=== PATIENT | female | born 2000 | race Caucasian/White ===

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

== ENCOUNTER 2020-04-03 14:06 | Emergency (ER) | payer OTHER ==
[~2020-04-03 14:06] MED LIST: ALBUTEROL2.5 MG/3 M INH; AUGMENTIN 875-1 EACH PO; CEFUROXIME500 MG PO; MACROBID 100 M100 MG PO; MOTRIN SUS100 MG/5 M PO; PREDNISONE20 MG PO; TESSALON PERLE100 MG PO; VENTOLIN HFA 66.7 GM INH; ZITHROMAX250 MG PO; ZOFRAN4 MG PO; ZYRTEC10 M3 PO
[2020-04-03] MEDS ORDERED: NAPROSYN500 MG PO (16:41)
== END 2020-04-03 17:13 | disposition home or self-care (01) ==
LOC: ER1 14:06
DX: S92.512A Displaced fracture of proximal phalanx of left lesser toe(s), initial encounter for closed fracture (principal); S93.402A Sprain of unspecified ligament of left ankle, initial encounter; F41.9 Anxiety disorder, unspecified; G43.909 Migraine, unspecified, not intractable, without status migrainosus; Z79.899 Other long term (current) drug therapy; Z88.0 Allergy status to penicillin; X58.XXXA Exposure to other specified factors, initial encounter; Y92.009 Unspecified place in unspecified non-institutional (private) residence as the place of occurrence of the external cause
CPT/HCPCS: 73610; 73630; 99283

== ENCOUNTER → 2020-04-12 | Outpatient (CLI) | payer OTHER ==
[~2020-04-12] MED LIST changes: +BENTYL 20MG TAB20 MG PO; +CIPRO500 MG PO; +NAPROSYN500 MG PO; +NAPROXEN500 MG PO; +ONDANSETRON ODT4 MG SL; +PHENERGAN 25 MG25 M1 PO; +PYRIDIUM200 MG PO
== END ==
LOC: KOH-I 08:49
DX: S93.325A Dislocation of tarsometatarsal joint of left foot, initial encounter (principal); X58.XXXA Exposure to other specified factors, initial encounter
CPT/HCPCS: 73700

== ENCOUNTER 2020-04-24 16:27 | Emergency (ER) | payer OTHER ==
[~2020-04-24 16:27] MED LIST changes: -BENTYL 20MG TAB20 MG PO; -CIPRO500 MG PO; -NAPROXEN500 MG PO; -ONDANSETRON ODT4 MG SL; -PHENERGAN 25 MG25 M1 PO; -PYRIDIUM200 MG PO
== END 2020-04-24 18:25 | disposition left against medical advice (07) ==
LOC: ER1 16:27
DX: F41.9 Anxiety disorder, unspecified (principal); Z53.21 Procedure and treatment not carried out due to patient leaving prior to being seen by health care provider
CPT/HCPCS: J2405

== ENCOUNTER → 2020-05-16 | Outpatient (CLI) | payer OTHER ==
[~2020-05-16] MED LIST changes: +BENTYL 20MG TAB20 MG PO; +CIPRO500 MG PO; +NAPROXEN500 MG PO; +ONDANSETRON ODT4 MG SL; +PHENERGAN 25 MG25 M1 PO; +PYRIDIUM200 MG PO
== END ==
LOC: KOH-I 10:33
DX: S93.322A Subluxation of tarsometatarsal joint of left foot, initial encounter (principal); X58.XXXA Exposure to other specified factors, initial encounter
CPT/HCPCS: 73630

== ENCOUNTER → 2020-06-01 | Outpatient (CLI) | payer OTHER | LOC: KOH-I 08:11 | DX: M79.672 Pain in left foot (principal) | CPT/HCPCS: 73718 ==

== ENCOUNTER 2020-06-10 13:32 | Emergency (ER) | payer OTHER ==
[~2020-06-10 13:32] MED LIST changes: -BENTYL 20MG TAB20 MG PO; -CIPRO500 MG PO; -NAPROXEN500 MG PO; -ONDANSETRON ODT4 MG SL; -PHENERGAN 25 MG25 M1 PO; -PYRIDIUM200 MG PO
[2020-06-10 15:44] LABS: HEMOGLOBIN 15.2 gm/dl (12.3-15.3); RED BLOOD COUNT 5.43 M/UL (4.00-5.10); WHITE BLOOD COUNT 13.6 K/UL (4.5-11.0)
[2020-06-10 16:14] LABS: BUN/CREATININE RATIO 12 (0-10)
[2020-06-10] MEDS ORDERED: NAPROSYN500 MG PO (16:57)
[2020-06-10] MEDS ORDERED: CIPRO500 MG PO (16:57)
[2020-06-10] MEDS ORDERED: PYRIDIUM200 MG PO (16:57)
[2020-06-10] MEDS ORDERED: ONDANSETRON ODT4 MG SL (16:57)
== END 2020-06-10 17:33 | disposition home or self-care (01) ==
LOC: ER1 13:32
PROVIDERS: Physician Assistant
DX: N39.0 Urinary tract infection, site not specified (principal); J45.909 Unspecified asthma, uncomplicated; Z88.0 Allergy status to penicillin
CPT/HCPCS: 80053; 81001; 83690; 84703; 85025; 87086; 96374; 96375; 99284; J1885; J2405; J7030

== ENCOUNTER 2020-07-26 18:44 | Emergency (ER) | payer OTHER ==
[~2020-07-26 18:44] MED LIST changes: +CIPRO500 MG PO; +ONDANSETRON ODT4 MG SL; +PYRIDIUM200 MG PO
[2020-07-26 21:11] LABS: RED BLOOD COUNT 5.77 M/UL (4.00-5.10)
[2020-07-26 21:36] LABS: BUN/CREATININE RATIO 12 (0-10)
== END 2020-07-26 22:55 | disposition home or self-care (01) ==
LOC: ER1 18:44
PROVIDERS: Emergency Medicine
DX: K82.9 Disease of gallbladder, unspecified (principal); E66.9 Obesity, unspecified; J45.909 Unspecified asthma, uncomplicated; Z90.89 Acquired absence of other organs
CPT/HCPCS: 80053; 81001; 83690; 84703; 85025; 96374; 96375; 99284; J1885; J2270; J2405; J7030

== ENCOUNTER 2020-07-28 12:00 | Emergency (ER) | payer OTHER ==
[2020-07-28 12:42] LABS: HEMOGLOBIN 15.2 gm/dl (12.3-15.3); RED BLOOD COUNT 5.4 M/UL (4.00-5.10); WHITE BLOOD COUNT 9.9 K/UL (4.5-11.0)
[2020-07-28 13:01] LABS: BUN/CREATININE RATIO 12 (0-10)
[2020-07-28] MEDS ORDERED: ZOFRAN4 MG PO (14:34)
[2020-07-28] MEDS ORDERED: BENTYL 20MG TAB20 MG PO (14:34)
[2020-07-28] MEDS ORDERED: NAPROXEN500 MG PO (14:34)
== END 2020-07-28 15:23 | disposition home or self-care (01) ==
LOC: ER1 12:00
PROVIDERS: Physician Assistant Medical
DX: R10.11 Right upper quadrant pain (principal); R11.2 Nausea with vomiting, unspecified; R19.7 Diarrhea, unspecified; J45.909 Unspecified asthma, uncomplicated; Z90.89 Acquired absence of other organs; Z88.0 Allergy status to penicillin
CPT/HCPCS: 76705; 80053; 81001; 83690; 85025; 85652; 86140; 96374; 96375; 99284; J2270; J2405; J7030

== ENCOUNTER → 2020-09-08 | Outpatient (CLI) | payer OTHER ==
[~2020-09-08] MED LIST changes: +BENTYL 20MG TAB20 MG PO; +NAPROXEN500 MG PO; +PHENERGAN 25 MG25 M1 PO
== END ==
LOC: NM 08:07
DX: R10.11 Right upper quadrant pain (principal)
CPT/HCPCS: 78226; A9537

== ENCOUNTER 2020-09-25 11:51 | Emergency (ER) | payer OTHER ==
[~2020-09-25 11:51] MED LIST changes: -PHENERGAN 25 MG25 M1 PO
[2020-09-25 14:37] LABS: HEMOGLOBIN 15.9 gm/dl (12.3-15.3); RED BLOOD COUNT 5.57 M/UL (4.00-5.10); WHITE BLOOD COUNT 13.5 K/UL (4.5-11.0)
[2020-09-25 14:49] LABS: BUN/CREATININE RATIO 9 (0-10)
[2020-09-25] MEDS ORDERED: BENTYL 20MG TAB20 MG PO (16:43)
[2020-09-25] MEDS ORDERED: ZOFRAN4 MG PO (16:43)
[2020-09-25] MEDS ORDERED: PHENERGAN 25 MG25 M1 PO (16:50)
[2020-09-26 05:08] LABS: HBSAG SCREEN Negative (Negative); HEP A AB, IGM Negative (Negative); HEP B CORE AB, IGM Negative (Negative); HEP C VIRUS AB <0.1 (0.0-0.9)
== END 2020-09-25 17:04 | disposition home or self-care (01) ==
LOC: ER1 11:51
PROVIDERS: Physician Assistant Medical
DX: R10.11 Right upper quadrant pain (principal); R11.2 Nausea with vomiting, unspecified; R19.7 Diarrhea, unspecified; J45.909 Unspecified asthma, uncomplicated; Z88.0 Allergy status to penicillin; Z90.89 Acquired absence of other organs
CPT/HCPCS: 80053; 80074; 83690; 84703; 85025; 96374; 96375; 99284; J1885; J2270; J2405

== ENCOUNTER 2020-09-26 16:01 | Emergency (ER) | payer OTHER ==
[~2020-09-26 16:01] MED LIST changes: +PHENERGAN 25 MG25 M1 PO
[2020-09-26 17:40] LABS: HEMOGLOBIN 15.4 gm/dl (12.3-15.3); RED BLOOD COUNT 5.43 M/UL (4.00-5.10); WHITE BLOOD COUNT 11.4 K/UL (4.5-11.0)
[2020-09-26 18:00] LABS: BUN/CREATININE RATIO 8 (0-10)
== END 2020-09-26 22:45 | disposition home or self-care (01) ==
LOC: ER1 16:01
PROVIDERS: Physician Assistant
DX: R10.11 Right upper quadrant pain (principal); R10.13 Epigastric pain; R11.2 Nausea with vomiting, unspecified; Z88.0 Allergy status to penicillin
CPT/HCPCS: 80053; 83690; 85025; 99284

== ENCOUNTER 2020-12-31 16:28 | Emergency (ER) | payer OTHER ==
[2020-12-31 18:43] LABS: HEMOGLOBIN 16.4 gm/dl (12.3-15.3); RED BLOOD COUNT 5.76 M/UL (4.00-5.10); WHITE BLOOD COUNT 9.5 K/UL (4.5-11.0)
[2020-12-31 19:06] LABS: BUN/CREATININE RATIO 9 (0-10)
[2020-12-31] MEDS ORDERED: PREDNISONE20 MG PO (19:33)
[2020-12-31] MEDS ORDERED: ZOFRAN4 MG PO (19:33)
== END 2020-12-31 20:19 | disposition home or self-care (01) ==
LOC: ER1 16:28
PROVIDERS: Nurse Practitioner
DX: A08.4 Viral intestinal infection, unspecified (principal); J45.901 Unspecified asthma with (acute) exacerbation; Z88.0 Allergy status to penicillin; Z79.899 Other long term (current) drug therapy; Z20.822 Contact with and (suspected) exposure to COVID-19
CPT/HCPCS: 71045; 80053; 81001; 83690; 84703; 85025; 87081; 87086; 87880; 96374; 99284; J2405; U0002

== ENCOUNTER 2021-01-20 20:49 | Inpatient (IN) | payer OTHER ==
[~2021-01-20] VITALS: Ht 157.5 cm; Wt 131.5 kg
[2021-01-20 22:40] LABS: HEMOGLOBIN 15.4 gm/dl (12.3-15.3); RED BLOOD COUNT 5.37 M/UL (4.00-5.10)
[2021-01-20 23:14] LABS: BUN/CREATININE RATIO 16 (0-10)
[2021-01-21] MEDS ORDERED: SEROQUEL25 MG PO (00:13)
[2021-01-21 03:18] LABS: HEMOGLOBIN 13.9 gm/dl (12.3-15.3); RED BLOOD COUNT 5.11 M/UL (4.00-5.10); WHITE BLOOD COUNT 9.5 K/UL (4.5-11.0)
[2021-01-21 03:46] LABS: BUN/CREATININE RATIO 16 (0-10)
[2021-01-22 10:45] LABS: HEMOGLOBIN 14.2 gm/dl (12.3-15.3); RED BLOOD COUNT 5.01 M/UL (4.00-5.10)
[2021-01-22 10:47] LABS: WHITE BLOOD COUNT 18.1 K/UL (4.5-11.0)
[2021-01-22 11:26] LABS: BUN/CREATININE RATIO 19 (0-10)
[2021-01-23 09:12] LABS: HEMOGLOBIN 14.5 gm/dl (12.3-15.3); RED BLOOD COUNT 5.09 M/UL (4.00-5.10); WHITE BLOOD COUNT 17.3 K/UL (4.5-11.0)
[2021-01-23] MEDS ORDERED: LEVALBUTER1.25 MG/3 NEB ×2 (12:42→12:53)
[2021-01-23] MEDS ORDERED: BANOPHEN25 MG PO ×2 (12:42→13:12)
[2021-01-23] MEDS ORDERED: EPIPEN 2-P0.3 MG/0.3 INJ (12:44)
[2021-01-23] MEDS ORDERED: PROAIR HFA8.5 GM INH ×2 (12:44→13:12)
[2021-01-23] MEDS ORDERED: MEDROL DOSEPAK 24 MG PO (12:55)
[2021-01-23] MEDS ORDERED: FAMOTIDINE20 MG PO (12:55)
[2021-01-23] MEDS ORDERED: BUDESONIDE0.5 MG/2 M NEB (13:12)
[2021-01-31 08:14] LABS: AMPHETAMINES, URINE Negative ng/mL (Cutoff=1000); BARBITURATE Negative ng/mL (Cutoff=200); BENZODIAZEPINES Negative ng/mL (Cutoff=200); CANNABINOID Negative (Cutoff=20); CANNABINOIDS See Final Results ng/mL (Cutoff=20); COCAINE (METABOLITE) Negative ng/mL (Cutoff=300); MEPERIDINE Negative ng/mL (Cutoff=200); METHADONE Negative ng/mL (Cutoff=300); OPIATES Negative ng/mL (Cutoff=300); OPIATES See Final Results ng/mL (Cutoff=300); PHENCYCLIDINE Negative ng/mL (Cutoff=25); PROPOXYPHENE Negative ng/mL (Cutoff=300)
== END 2021-01-23 14:09 | disposition home or self-care (01) | DRG 916 ==
LOC: ER1 20:49 → PROG CARE 22:39 → CDU 22:39 → MED SURG 4 22:39 → PROG CARE 23:47 → MED SURG 4 01-22 14:16
PROVIDERS: Emergency Medicine; Internal Medicine; ADMIT Internal Medicine
DX: T78.09XA Anaphylactic reaction due to other food products, initial encounter (principal); J98.11 Atelectasis; J45.21 Mild intermittent asthma with (acute) exacerbation; Z68.43 Body mass index [BMI] 50.0-59.9, adult; Z20.822 Contact with and (suspected) exposure to COVID-19; R73.9 Hyperglycemia, unspecified; R13.10 Dysphagia, unspecified; G47.33 Obstructive sleep apnea (adult) (pediatric); T38.0X5A Adverse effect of glucocorticoids and synthetic analogues, initial encounter; E66.01 Morbid (severe) obesity due to excess calories; Z83.3 Family history of diabetes mellitus; Z90.49 Acquired absence of other specified parts of digestive tract; Z91.018 Allergy to other foods; Z23 Encounter for immunization
CPT/HCPCS: 36415; 36430; 71045; 71250; 80053; 80307; 82550; 82553; 82962; 83735; 83874; 84100; 84439; 84443; 84484; 84703; 85025; 85379; 90686; 94640; 94664; 94760; 99285; G0008; J1650; J2920; U0002

== ENCOUNTER → 2021-02-13 | Outpatient (CLI) | payer OTHER ==
[~2021-02-13] MED LIST changes: +BANOPHEN25 MG PO; +BUDESONIDE0.5 MG/2 M NEB; +EPIPEN 2-P0.3 MG/0.3 INJ; +FAMOTIDINE20 MG PO; +LEVALBUTER1.25 MG/3 NEB; +MEDROL DOSEPAK 24 MG PO; +PROAIR HFA8.5 GM INH; +SEROQUEL25 MG PO
== END ==
LOC: HEART 5 11:50
DX: J45.909 Unspecified asthma, uncomplicated (principal); Z91.038 Other insect allergy status
CPT/HCPCS: 94060; 94729; 95012

== ENCOUNTER 2021-06-26 19:38 | Emergency (ER) | payer OTHER ==
[2021-06-26 20:29] LABS: HEMOGLOBIN 15.2 gm/dl (12.3-15.3); RED BLOOD COUNT 5.45 M/UL (4.00-5.10); WHITE BLOOD COUNT 11.5 K/UL (4.5-11.0)
[2021-06-26 20:53] LABS: BUN/CREATININE RATIO 12 (0-10)
[2021-06-27] MEDS ORDERED: ZOFRAN ODT 4 MG4 MG GT (00:52)
== END 2021-06-27 00:55 | disposition home or self-care (01) ==
LOC: ER1 19:38
PROVIDERS: Family Medicine
DX: S60.812A Abrasion of left wrist, initial encounter (principal); R11.2 Nausea with vomiting, unspecified; R51.9 Headache, unspecified; F17.210 Nicotine dependence, cigarettes, uncomplicated; F10.10 Alcohol abuse, uncomplicated; F17.200 Nicotine dependence, unspecified, uncomplicated; Z20.822 Contact with and (suspected) exposure to COVID-19; W45.8XXA Other foreign body or object entering through skin, initial encounter
CPT/HCPCS: 80053; 80307; 81001; 83605; 83690; 84703; 85025; 96374; 96375; 99284; G0480; J2060; J2405; J7030; U0002

== ENCOUNTER 2021-07-04 15:30 | Inpatient (IN) | payer OTHER ==
[~2021-07-04] VITALS: Ht 157.5 cm; Wt 122.5 kg
[~2021-07-04 15:30] MED LIST changes: +ZOFRAN ODT 4 MG4 MG GT
[2021-07-04 16:13] LABS: HEMOGLOBIN 15.6 gm/dl (12.3-15.3); RED BLOOD COUNT 5.53 M/UL (4.00-5.10); WHITE BLOOD COUNT 13.3 K/UL (4.5-11.0)
[2021-07-04 16:41] LABS: BUN/CREATININE RATIO 8 (0-10)
[2021-07-04] MEDS ORDERED: LORATADINE10 MG PO (23:02)
[2021-07-05] MEDS ORDERED: MILI 0.25-0.031 EACH PO (09:16)
[2021-07-05] MEDS ORDERED: ALBUTEROL2.5 MG/3 M NEB (09:17)
[2021-07-05] MEDS ORDERED: PROVENTIL HFA6.7 GM INH (09:19)
[2021-07-05] MEDS ORDERED: BREO ELLIPTA 11 EACH INH (09:35)
[2021-07-05 10:58] LABS: HEMOGLOBIN 14.6 gm/dl (12.3-15.3); RED BLOOD COUNT 5.27 M/UL (4.00-5.10); WHITE BLOOD COUNT 12.3 K/UL (4.5-11.0)
[2021-07-05 11:18] LABS: BUN/CREATININE RATIO 16 (0-10)
--- NOTE | 2021-07-05 12:31 | NUR ---
DARIUS ASKED US TO CALL SECURITY AND HAVE HER GRANDMOTHER REMOVED. WE CALLED SECURITY AND UPON ARRIVING WE INTERVEIWED BOTH PATIENT AND GRANDMOTHER SEPERATELY TO FIND OUT WHAT HAPPEND. BOTH COOPERATED AND GRANDMOTHER LEFT PEACEFULLY. NATIVIDAD (EXECUTIVE KITCHEN MANAGER) AND YASSINE (TUBE TEST TECHNICIAN) ALSO GOT INVOLVED IN THE INTERVEIWS. THE GRANDMOTHERS SIDE OF THE STORY WAS THAT SHE DID NOT HIT THE PATIENT AND THE PATIENT WAS JUST MAD BECAUSE THE GRANDMOTHER HAD DISCOVERD A RAZOR IN VIVIENNE'S PURSE AND VIVIENNE HAS A HISTORY OF CUTTING HERSELF. THE RAZOR WAS CONFISCATED BY [employer]. THE PATIENT WILLINGLY GAVE IT UP. THE PATIENTS SIDE OF THE STORY WAS THAT SHE FOUND HER GRANDMOTHER GOING THROUGH HER PURSE WHEN SHE GOT BACK FROM [place] AND THE GRANDMOTHER ACCUSED VIVIENNE OF STEALING HER NARCOTICS AND AFTER VIVIENNE DENIED THIS THE GRANDMOTHER BEGAN HITTING HER IN HER CHEST. VIVIENNE SAID SHE DOES HAVE A HISTORY OF CUTTING HERSELF BUT HAS NOT RECENTLY AND HAS NO PLANS TO AND SAYS SHE IS NOT SUICIDAL AND HAS NO PLANS OF HURTING HERSELF. THE PATIENT SAID HER GRANDMOTHER DOES THIS OCCASINALLY WHERE SHE GETS OUT OF HER HEAD AND ONCE SHE GOES HOME TO REST SHE CAN BE ALLOWED BACK.
--- NOTE | 2021-07-05 17:40 | NUR ---
FLATLOCK SEWING MACHINE OPERATOR FRANNY CAME OUT OF VIVIENNE'S ROOM AND STATED THAT VIVIENNE HAD STATED SHE WAS HAVING SUCIDAL THOUGHTS "ON AND OFF". UPON ENTERING THE PATIENTS ROOM THE PATIENT TOLD ME SHE WAS TRYING TO SAY THAT SHE HAD SUICIDAL THOGUHTS IN THE PAST BUT IS NOT NOW. DR. WALSH WAS NOTIFIED AND SO WAS NATIVIDAD DELGADO FARMWORKER AND YASSINE PROPERTY LOSS INSURANCE CLAIM ADJUSTER. PATIENT IS NOW PLACED IN SUICIDE PERCAUTIONS AND AWAITING OLAP EVAL. PATIENT REFUSED PAPER GOWN AFTER MULTIPLE ATTEMPTS TO GET HER TO WEAR IT.
[2021-07-06 07:40] LABS: HEMOGLOBIN 14.1 gm/dl (12.3-15.3); RED BLOOD COUNT 5.12 M/UL (4.00-5.10)
[2021-07-06 07:41] LABS: WHITE BLOOD COUNT 20.6 K/UL (4.5-11.0)
[2021-07-06 07:55] LABS: BUN/CREATININE RATIO 21 (0-10)
[2021-07-07 03:48] LABS: HEMOGLOBIN 14.2 gm/dl (12.3-15.3); RED BLOOD COUNT 5.09 M/UL (4.00-5.10); WHITE BLOOD COUNT 16.1 K/UL (4.5-11.0)
[2021-07-07 04:02] LABS: BUN/CREATININE RATIO 22 (0-10)
[2021-07-08 11:10] LABS: HEMOGLOBIN 15.1 gm/dl (12.3-15.3); RED BLOOD COUNT 5.4 M/UL (4.00-5.10); WHITE BLOOD COUNT 19.5 K/UL (4.5-11.0)
[2021-07-08 11:42] LABS: BUN/CREATININE RATIO 27 (0-10)
[2021-07-09 06:56] LABS: HEMOGLOBIN 14.7 gm/dl (12.3-15.3); RED BLOOD COUNT 5.29 M/UL (4.00-5.10); WHITE BLOOD COUNT 17.8 K/UL (4.5-11.0)
[2021-07-09 07:27] LABS: BUN/CREATININE RATIO 22 (0-10)
[2021-07-10] MEDS ORDERED: LEVALBUTER0.63 MG/3 NEB (07:52)
[2021-07-10] MEDS ORDERED: PROTONIX 40 MG40 M1 PO (07:52)
[2021-07-10] MEDS ORDERED: NICOTINE PATCH1 EAC1 TD (07:52)
[2021-07-10] MEDS ORDERED: ACETAMINOPHEN325 MG PO (07:52)
--- NOTE | 2021-07-11 17:20 | NUR ---
pt discharged to [facility] , he states he will take her to [facility] to be evaluated by [facility]. pt stable she denies stress and sadness at this time and denies a plan to self harm.
[2021-07-13 03:08] LABS: D001-IGE D PTERONYSSINUS <0.10 kU/L (Class 0); D002-IGE D FARINAE <0.10 kU/L (Class 0); E005-IGE DOG DANDER 0.61 kU/L (Class II); G006-IGE TIMOTHY GRASS 0.16 kU/L (Class 0/I); M001-IGE PENICILLIUM CHRYSOGEN <0.10 kU/L (Class 0); M002-IGE CLADOSPORIUM HERBARUM <0.10 kU/L (Class 0); M003-IGE ASPERGILLUS FUMIGATUS <0.10 kU/L (Class 0); M006-IGE ALTERNARIA ALTERNATA <0.10 kU/L (Class 0); T001-IGE MAPLE/BOX ELDER 0.16 kU/L (Class 0/I); T003-IGE COMMON SILVER BIRCH <0.10 kU/L (Class 0); T007-IGE OAK, WHITE 0.16 kU/L (Class 0/I); T010-IGE WALNUT 0.17 kU/L (Class 0/I); T011-IGE MAPLE LEAF SYCAMORE 0.12 kU/L (Class 0/I); T014-IGE COTTONWOOD 0.11 kU/L (Class 0/I); T015-IGE ASH, WHITE 0.21 kU/L (Class 0/I); T070-IGE WHITE MULBERRY <0.10 kU/L (Class 0); W001-IGE RAGWEED, SHORT <0.10 kU/L (Class 0); W018-IGE SHEEP SORREL 0.15 kU/L (Class 0/I)
== END 2021-07-11 17:00 | disposition home or self-care (01) | DRG 189 ==
LOC: ER1 15:30 → CDU 17:51 → MED SURG 4 20:35
PROVIDERS: Internal Medicine; Nurse Practitioner Family; Physician Assistant Medical; Preventive Medicine Occupational Medicine; ADMIT Internal Medicine
DX: J96.01 Acute respiratory failure with hypoxia (principal); G93.5 Compression of brain; J98.11 Atelectasis; J45.41 Moderate persistent asthma with (acute) exacerbation; Z20.822 Contact with and (suspected) exposure to COVID-19; J82.83 Eosinophilic asthma; Z68.42 Body mass index [BMI] 45.0-49.9, adult; E66.01 Morbid (severe) obesity due to excess calories; F32.A Depression, unspecified; F41.9 Anxiety disorder, unspecified; F10.10 Alcohol abuse, uncomplicated; F19.10 Other psychoactive substance abuse, uncomplicated; F17.210 Nicotine dependence, cigarettes, uncomplicated; F17.220 Nicotine dependence, chewing tobacco, uncomplicated; K76.0 Fatty (change of) liver, not elsewhere classified; J20.9 Acute bronchitis, unspecified; G47.33 Obstructive sleep apnea (adult) (pediatric); K21.9 Gastro-esophageal reflux disease without esophagitis; G43.909 Migraine, unspecified, not intractable, without status migrainosus; Z90.49 Acquired absence of other specified parts of digestive tract; Z91.010 Allergy to peanuts; Z88.0 Allergy status to penicillin; Z91.018 Allergy to other foods; Z99.81 Dependence on supplemental oxygen; Z91.52 Personal history of nonsuicidal self-harm
CPT/HCPCS: 0240U; 36415; 36600; 70450; 71045; 80048; 80053; 80307; 81001; 82150; 82785; 82803; 82962; 83690; 83735; 83880; 84100; 84703; 85025; 85027; 85652; 86140; 87086; 93005; 94640; 94664; 94760; 99285; J0456; J1650; J2405; J2920; J7030; Q9967; U0002